=== PATIENT | female | born 1935 | race Caucasian/White ===

== ENCOUNTER → 2017-04-08 | Outpatient (CLI) | payer OTHER | LOC: FIMAGING 15:08 | PROVIDERS: ATTEND Internal Medicine | DX: Z12.31 Encounter for screening mammogram for malignant neoplasm of breast (principal); Z80.3 Family history of malignant neoplasm of breast | CPT/HCPCS: G0202 ==

== ENCOUNTER → 2018-04-28 | Outpatient (CLI) | payer OTHER | LOC: FIMAGING 11:36 | PROVIDERS: ATTEND Internal Medicine | DX: Z12.31 Encounter for screening mammogram for malignant neoplasm of breast (principal); Z80.3 Family history of malignant neoplasm of breast ==